=== PATIENT | male | born 1945 | race Caucasian/White ===

== ENCOUNTER 2018-04-14 06:34 | Day surgery (SDC) | payer OTHER ==
[2018-04-12 10:25] VITALS: BMI 27.1
[2018-04-14 07:15] LABS: URINE APPEARANCE CLEAR; URINE BILIRUBIN NEGATIVE (<2.0 mg/dL); URINE COLOR LTYELLOW; URINE GLUCOSE (UA) NEGATIVE (NEGATIVE); URINE KETONE NEGATIVE (NEGATIVE); URINE LEUK ESTERASE NEGATIVE (NEGATIVE); URINE NITRITE NEGATIVE (NEGATIVE); URINE PROTEIN NEGATIVE (NEGATIVE); URINE UROBILINOGEN NEGATIVE mg/dL (0.2-1.0)
[2018-04-14] MEDS ORDERED: fentaNYL CITRATE 250 MCG/5 ML VIAL ONE (07:55)
[2018-04-14] MEDS ORDERED: PROPOFOL 20 ML ONE (07:56)
[2018-04-14] MEDS ORDERED: ROCURONIUM BROMIDE 50 MG/5 ML VIAL ONE ×3 (07:56→11:06)
[2018-04-14] MEDS ORDERED: MIDAZOLAM HCL 2 MG/2 ML SINGLE DOSE VIAL ONE (07:56)
--- NOTE | 2018-04-14 08:11 | HP ---
Admitting History and Physical - Admission History of Present Illness: The patient is 72 yo male who presents today for robotic assisted prostatectomy surgery. He has no complaints of CP/SOB or fevers. No abd pain today, last bowel movemwnt was yesterday. History Source: Patient Limitations to Obtaining History: No Limitations - Past Medical History Cardiovascular: Yes: Hyperlipdemia, Other (arrythemia s/p ablation in 2016). No : Deep Vein Thrombosis Gastrointestinal: No: Constipation - Past Surgical History Past Surgical History: Yes: None - Advance Directives Advance Directives: Yes: Living Will, Health Care Proxy - Smoking History Smoking history: Former smoker Have you smoked in the past 12 months: No - Alcohol/Substance Use Hx Alcohol Use: Yes (OCCASIONAL) Home Medications - Allergies Allergies/Adverse Reactions: Allergies Allergy/AdvReac Type Severity Reaction Status Date / Time Penicillins Allergy Severe Hives Verified 04/14/18 07:27 - Home Medications Home Medications: Ambulatory Orders Atorvastatin Ca [Lipitor] 20 mg PO DAILY 04/12/18 Cholecalciferol (Vitamin D3) [Vitamin D3] 1,000 unit PO DAILY 04/12/18 Citalopram Hydrobromide [Citalopram HBr] 20 mg PO DAILY 04/12/18 Acetaminophen [Tylenol] 1,000 mg PO Q6H PRN #30 capsule 04/14/18 Arnica Flower Extract [Arnica Lg] 1 gm MC ONCE 04/14/18 Cbd Oil PO TID 04/14/18 Docusate Sodium [Colace] 100 mg PO BID #60 capsule 04/14/18 Ketorolac Tromethamine [Toradol] 10 mg PO Q6H #20 tablet 04/14/18 Oxybutynin Chloride [Ditropan -] 5 mg PO TID PRN #10 tablet.er 04/15/18 Review of Systems - Review of Systems Constitutional: denies: Chills, Fever Cardiovascular: denies: Chest Pain Gastrointestinal: denies: Abdominal Pain, Constipation Physical Examination Vital Signs: Vital Signs Temperature 98.2 F 04/14/18 07:23 Pulse Rate 71 04/14/18 07:23 Respiratory Rate 18 04/14/18 07:23 Blood Pressure 135/81 04/14/18 07:23 O2 Sat by Pulse Oximetry (%) 97 04/14/18 07:24 Constitutional: Yes: Well Nourished, No Distress, Calm HENT: Yes: WNL, Atraumatic, Normocephalic Neck: Yes: WNL, Supple, Trachea Midline Cardiovascular: Yes: WNL, Regular Rate and Rhythm Respiratory: Yes: WNL, Regular, CTA Bilaterally Gastrointestinal: Yes: WNL, Normal Bowel Sounds, Soft Extremities: No: Calf Tenderness Edema: No Neurological: Yes: WNL, Alert, Oriented ...Motor Strength: LUE, LLE Psychiatric: Yes: WNL, Alert, Oriented Assessment/Plan 72 yo male with prostatic adenocarcinoma Plan for robotic assisted prostatectomy He remains npo IV abx at time for surgery Heparin SQ prior to surgery, OOB and ambulate post-op D/w Dr. Stewart
[2018-04-14] MEDS ORDERED: ceFAZolin SODIUM 1 GM VIAL ONE (08:40)
[2018-04-14] MEDS ORDERED: ceFAZolin SODIUM 1 GM VIAL IVPB ONE (08:45)
[2018-04-14] MEDS ORDERED: BUPIVACAINE HCL/PF 0.25% (2.5MG/ML) 10 ML VIAL IJ ONE ×3 (08:54→12:58)
[2018-04-14] MEDS ORDERED: ePHEDrine SULFATE 50 MG/1 ML AMPULE ONE (08:56)
[2018-04-14] MEDS ORDERED: DEXAMETHASONE SOD PHOSPHATE 4 MG/1 ML VIAL ONE (09:21)
[2018-04-14] MEDS ORDERED: ONDANSETRON 4 MG/2 ML VIAL IVPUSH PRN ×2 (11:11→13:34)
[2018-04-14] MEDS ORDERED: LACTATED RINGERS SOLUTION 1,000 ML IV SCH (11:15)
--- NOTE | 2018-04-14 11:37 | EKG ---
Test Reason : Blood Pressure : / mmHG Vent. Rate : 067 BPM Atrial Rate : 067 BPM P-R Int : 140 ms QRS Dur : 120 ms QT Int : 402 ms P-R-T Axes : 065 060 042 degrees QTc Int : 424 ms NORMAL SINUS RHYTHM NON-SPECIFIC INTRA-VENTRICULAR CONDUCTION DELAY BORDERLINE ECG NO PREVIOUS ECGS AVAILABLE Confirmed by CARMEN REEVES, CHRIS ([id number]) on 04/14/2018 11:36:58 AM Referred By: SUMMER BREWER Confirmed By:CHRIS MORALES MD
[2018-04-14] MEDS ORDERED: NEOSTIGMINE METHYLSULFATE 0.5 MG/ML - 10 ML MDV ONE (12:53)
[2018-04-14] MEDS ORDERED: GLYCOPYRROLATE 0.2 MG/1 ML VIAL ONE (12:53)
[2018-04-14] MEDS ORDERED: KETOROLAC TROMETHAMINE 30 MG/1 ML VIAL IVPUSH ONE (13:43)
[2018-04-14] MEDS ORDERED: ACETAMINOPHEN 1000 MG/100 ML VIAL (NON FORMULARY) IVPB ONE (13:46)
[2018-04-14] MEDS ORDERED: OXYBUTYNIN CHLORIDE 5 MG TABLET PO PRN (13:46)
[2018-04-14] MEDS ORDERED: diphenhydrAMINE HCL 25 MG CAPSULE (FP) PO PRN (13:48)
--- NOTE | 2018-04-14 13:58 | OP ---
Operative Note - Note: Operative Date: 04/14/18 Pre-Operative Diagnosis: prostate Cancer Operation: robotic assisted lap radical prostatectomy b/l pelivc lymph nodes dissection, left inguinal peritoneal defect repair Surgeon: Diego Stewart Tire Groover: Robson Cavanaugh Anesthesiologist/PRISON LIBRARIAN: Ayesha Kinsey Anesthesia: General Estimated Blood Loss (mls): 100 Drains, Volume Out (mls): 20 (christian)
[2018-04-14] MEDS: SODIUM CHLORIDE 1,000 ML IV SCH (15:15)
[2018-04-14] MEDS ORDERED: ACETAMINOPHEN 325 MG TABLET (FP) PO SCH (20:00)
--- NOTE | 2018-04-14 20:22 | OP ---
DATE OF OPERATION: 04/14/2018 NAME OF OPERATION: Robotic assisted laparoscopic radical prostatectomy with bilateral pelvic lymph node dissection. DESCRIPTION OF PROCEDURE: The patient was brought to the operating room. Timeout was called. All pressure points were padded. He was prepped and draped in the usual fashion for robotic radical prostatectomy. A Stanford catheter was placed in the bladder. Initial pneumoperitoneum was obtained using a Veress needle. Subsequently, an 8 mm port was placed, and the robotic camera was used, and the abdomen was explored. No bowel entries were identified. Three 8-mm ports subsequently and one 12-mm research program assistant port were placed under vision. The robot was brought to the patient's bedside and docked. We identified a few intraabdominal adhesions, which were taken down sharply. The bladder was dropped form the anterior attachment to the abdominal wall. The prostate was then defatted, and this fat was sent for pathological examination. The endopelvic fascia was opened on both sides. Superficial veins were cauterized, and a dorsal venous complex stitch of 0 PDS was placed. The anterior bladder neck was then incised, and the dissection proceeded towards the posterior bladder neck up to the vas deferens and seminal vesicles. The rectoprostatic fascia was incised, and the dissection was carried distally toward the apex. At that point, bilateral nerve sparing procedure was performed, and dissection was pursued laterally up to the apex. On the right, an intrafascial nerve sparing procedure was performed. On the left, an intrafascial nerve sparing procedure was performed. Prostatic vascular pedicles were then controlled bilaterally using wet clips. We then noted that the patient had a sliding hernia on the left. The bladder was retracted from the hernia, and the hernia sac was divided. We then used a running 3-0 Vicryl to cover a flap of peritoneum over the hernia site. We then asked for consultation from Dr. Mora of general surgery to examine the repair, and he agreed with the course of action. The dorsal venous complex was then divided, and the urethra was transected using cold scissors. Following complete transection of the urethra, the prostate was immobilized and freed from its posterior attachments and placed in the right upper quadrant. A prostatic basin was then irrigated with saline. The administrative sales assistant then placed a finger in the rectum, and no rectal injury was observed, and no visible blood noted on the administrative sales assistant's glove. Bilateral pelvic lymph node dissection was performed in the usual fashion between the external iliac and obturator nerves bilaterally. The prostate and lymph nodes were then placed together in an EndoCatch bag. At this point, hemostasis was assessed and maintained in the prostatic fossa. The urethrovesical anastomosis was then performed using 2-0 Monocryl sutures on a UR6 needle in a running anastomotic technique. Again, anastomosis was tested with 60 mL of saline and was watertight. A Magen-Jo drain was not placed. The 12-mm research program assistant port was closed using the Cesar-Dontae device with 0 Vicryl. The specimen was extracted after enlarging the umbilical incision. The fascia was then closed using running 0 Vicryl. The skin was closed using 4-0 Monocryl and covered with Dermabond. The patient was extubated in the OR, and taken to the recovery room in good condition. MD TAMIKA BULLOCK/[id number]
[2018-04-14] MEDS ORDERED: ZOLPIDEM TARTRATE 5 MG TABLET PO PRN (22:00)
[2018-04-14] MEDS ORDERED: ATORVASTATIN CA 20 MG TABLET (FP) PO SCH (22:00)
[2018-04-14] MEDS: DOCUSATE SODIUM 100 MG CAPSULE (FP) PO SCH (22:42)
[2018-04-14] MEDS: KETOROLAC TROMETHAMINE 10 MG TABLET PO SCH (23:11)
[2018-04-14] MEDS: ACETAMINOPHEN 500 MG TABLET (FP) PO SCH (23:35)
[2018-04-15] MEDS: SODIUM CHLORIDE 1,000 ML IV SCH (02:15)
[2018-04-15] MEDS ORDERED: ACETAMINOPHEN 500 MG TABLET (FP) PO PRN (05:43)
[2018-04-15] MEDS: ACETAMINOPHEN 500 MG TABLET (FP) PO SCH (06:21)
[2018-04-15] MEDS: KETOROLAC TROMETHAMINE 10 MG TABLET PO SCH ×5 (06:23→15:51)
--- NOTE | 2018-04-15 08:12 | PN ---
Progress Note (short form) - Note Progress Note: POD#1 Pt with lower intermittent abd pain overnight, medicated with tyelnol X1. Denies any CP/SOB. Vital Signs Period Temp Pulse Resp BP Sys/Chavira Pulse Ox Last 24 Hr 97.6 F-98.9 F 85-109 14-20 113-151/66-96 93-99 UOP-1100ml clear/yellow urine GEN: resting comfortabley CV: RRR Lungs: CTA b/l ABD: soft, non-distended, Inc tenderness. Inc c/d/i with dermabond. No ecchymosis/erythema noted. LE: SCDs in place. No calf tenderness or swelling noted b/l A/P: 72 yo male s/p robotic assisted prostatectomy, b/l lymph node dissection Christian catheter remains clear this am, continue christian to drainage. Will need leg bag appliance upon discharge. Continue clear liquid diet today, awaiting flatus for diet to be advanced. Continue stool softners to avoid straining with bowel movements. Tylenol/toradol for pain management OOB and ambulate today cbc/chem to be drawn this am Incentive spirometer D/w Dr. Stewart
[2018-04-15 09:00] LABS: HEMATOCRIT 32.9 % (35.4-49); HEMOGLOBIN 11.4 GM/dL (11.7-16.9); RBC 3.64 M/mm3 (4.00-5.60); WHITE BLOOD COUNT 8.5 K/mm3 (4.0-10.0)
[2018-04-15 09:01] LABS: MCH 31.4 pg (25.7-33.7); MCHC 34.7 g/dl (32.0-35.9); MEAN CELL VOLUME 90.4 fl (80-96); MEAN PLT VOLUME 7.1 fl (7.5-11.1); PLATELET COUNT 144 K/MM3 (134-434); RDW 13.4 % (11.9-15.9)
[2018-04-15 09:25] LABS: ANION GAP 5 MMOL/L (8-16); BLOOD UREA NITROGEN 22 mg/dL (7-18); CALCIUM 7.9 mg/dL (8.5-10.1); CHLORIDE 106 mmol/L (98-107); CO2 26 mmol/L (21-32); CREATININE 1.2 mg/dL (0.55-1.3); GLUCOSE,RANDOM 90 mg/dL (74-106); POTASSIUM 4.2 mmol/L (3.5-5.1); SODIUM 138 mmol/L (136-145)
[2018-04-15] MEDS ORDERED: CHOLECALCIFEROL (VITAMIN D3) 1,000 UNIT TABLET (FP) PO SCH (10:00)
[2018-04-15] MEDS ORDERED: CITALOPRAM HYDROBROMIDE 20 MG TABLET (FP) PO SCH (10:00)
[2018-04-15] MEDS: DOCUSATE SODIUM 100 MG CAPSULE (FP) PO SCH (10:04)
[2018-04-15 11:09] VITALS: TEMP 98.1
--- NOTE | 2018-04-15 13:33 | PN ---
Progress Note (short form) - Note Progress Note: POD #1 - s/p robotic prostatectomy. VSS. Pt. doing well, resting comfortably in bed. No complaints. Good pain control. No apparent anesthetic complications noted. Continue current care.
[2018-04-15 14:50] VITALS: BP 121/65; PULSE 82
--- NOTE | 2018-04-20 17:35 | PATH ---
Surgical Pathology Report Patient Name: ÁNGEL KEVIN [facility]. Rec. #: [id number] /Age/Gender: 1945 (Age: 72) / M Account: [id number] Location: AMBULATORY SURG Taken: 04/14/2018 Received: 04/15/2018 Reported: 04/20/2018 Physicians: Diego Stewart MD Specimen(s) Received A: SARAH PROSTATIC FAT B: BLADDER NECK MARGIN C: PELVIC LYMPH NODE A D: PELVIC LYMPH NODE B E: PROSTATE AND SEMINAL VESICLE Clinical History Prostate cancer Final Diagnosis A. PERIPROSTATIC FAT, EXCISION: BENIGN FIBROADIPOSE AND FIBROVASCULAR TISSUE. NEGATIVE FOR CARCINOMA. B. BLADDER NECK MARGIN, EXCISION: BENIGN PROSTATIC PARENCHYMA AND SMOOTH MUSCLE BUNDLES. NEGATIVE FOR CARCINOMA. C. PELVIC LYMPH NODE, A, DISSECTION: THREE LYMPH NODES, NEGATIVE FOR CARCINOMA (0/3). D. PELVIC LYMPH NODE, B, DISSECTION: THREE LYMPH NODES, NEGATIVE FOR CARCINOMA (0/3). E. PROSTATE AND SEMINAL VESICLES, ROBOTIC-ASSISTED LAPAROSCOPIC RADICAL PROSTATECTOMY: PROSTATIC ADENOCARCINOMA, YOHANNES SCORE (4 + 3 = 7), GRADE 3; TERTIARY PATTERN YOHANNES 5. TUMOR VOLUME: APPROXIMATELY 50% OF GLAND VOLUME. TUMOR FOCALITY: MULTIFOCAL, PRESENT BILATERALLY; DOMINANT NODULE AT LEFT, MEASURES 3.2 X 2.7 X 2.7 CM. HIGH GRADE PROSTATIC INTRAEPITHELIAL NEOPLASIA (HGPIN) PRESENT. FOCAL INTRADUCTAL CARCINOMA PRESENT. TUMOR INVOLVES RIGHT AND LEFT SEMINAL VESICLES. LYMPHOVASCULAR INVASION IDENTIFIED. PERINEURAL INVASION IDENTIFIED. EXTRAPROSTATIC EXTENSION: PRESENT, FOCAL, AT LEFT POSTERIOR BASE. SURGICAL MARGIN IS FOCALLY POSITIVE, LIMITED, MEASURES 1 MM, AT LEFT BASE (YOHANNES 4); OTHER MARGINS ARE NEGATIVE. PATHOLOGIC STAGE: pT3b pN0. SEE SUMMARY BELOW. Comment: Immunohistochemical stain for p63 highlight basal cells in the intraductal carcinoma and HGPIN (part E). Immunohistochemical stains performed and interpreted at [facility] for AE1/3 utilized to evaluate part C and D. Case seen interdepartmentally. Findings discussed with Dr. Stewart. Comments Prostate Carcinoma Invasive Case Summary _X__ Radical prostatectomy +Prostate Size + Weight: _57__ g + Size (centimeters): _5__ x _4.8__ x _4__ cm Histologic Type _X__ Acinar adenocarcinoma Primary [place] Pattern _X__ Pattern 4 Secondary Yohannes Pattern _X__ Pattern 3 Tertiary [place] Pattern _X__ Pattern 5 Total [place] Score: _7_ Grade Group _X__ Grade group 3 + Percentage of Yohannes Patterns 4 and 5 (applicable to [place] score =7) + Percentage of pattern 4: _60__% + Percentage of pattern 5: _5__% + Intraductal Carcinoma (IDC) + _X__Present + Tumor Quantitation + Estimated percentage of prostate involved by tumor: _50%_ and/or + Tumor size (dominant nodule, if present): + Greatest dimension (millimeters): _3.2__ mm + Additional dimensions (millimeters): _2.7__ x _2.7__ mm + Location of dominant nodule:__Left posterior and anterior__ Extraprostatic Extension (EPE) _X__ Present, focal + Location of Extraprostatic Extension + _X_ Left posterior (base) Urinary Bladder Neck Invasion _X__ Not identified Seminal Vesicle Invasion _X__ Present + _X__ Bilateral Margins _X__ Involved by invasive carcinoma _X__ Limited (<3 mm) + Linear length of positive margin(s) (millimeters): _1_ mm. + Focality + _X__ Unifocal Location of Positive Margin(s) _X__ Left base + Margin Positivity in Area of Extraprostatic Extension (EPE) + _X__ Not identified + [place] Pattern at Positive Margin(s) + _X__ Pattern 4 Treatment Effect _X__ No known presurgical therapy + Lymphovascular Invasion + _X__ Present + Perineural Invasion + __X_ Present Regional Lymph Nodes Lymph Node Examination Number of Lymph Nodes Involved: _0_ + Specify Site(s): __pelvic lymph nodes__Number of Lymph Nodes Examined: __6_ Pathologic Stage Classification (pTNM, AJCC 8th Edition) Primary Tumor (pT) _X__ pT3b: Tumor invades seminal vesicle(s) Regional Lymph Nodes (pN) _X__ pN0: No positive regional nodes + Additional Pathologic Findings + _X_ High-grade prostatic intraepithelial neoplasia (HGPIN) + _X_ Inflammation (specify type): __chronic_ Electronically Signed Adeline Tom M.D. Gross Description A. Received in formalin labeled "periprostatic fat," is a 3.5 x 3.5 x 0.3 cm aggregate of yellow, lobulated adipose tissue. The specimen is submitted in toto in 2 cassettes. B. Received in formalin labeled "bladder neck margin," are 2 donato brown, cauterized portions of tissue measuring 1.5 x 0.9 x 0.4 cm and 1.2 x 1.2 x 0.5 cm. The specimens are inked blue and serially sectioned. The specimen is entirely submitted in 2 cassettes. C. Received in formalin labeled "pelvic lymph node A," is a 6.0 x 5.0 x 1.4 cm aggregate of yellow, lobulated adipose tissue. Sectioning reveals 3 possible lymph nodes ranging from 0.8-1.7 cm in greatest dimension. The lymph nodes are entirely submitted in 3 cassettes as follows: 1-two whole possible lymph nodes; 2-3-one bisected lymph node. D. Received in formalin labeled "pelvic lymph node B," is a 6.0 x 5.0 x 0.9 cm aggregate of yellow, lobulated adipose tissue. Sectioning reveals 3 donato lymph nodes ranging from 1.0-1.5 cm in greatest dimension. The lymph nodes are entirely submitted in 4 cassettes as follows: 1-one bisected lymph node; 2-one bisected lymph node; 3-4-one bisected lymph node. E. Received in formalin labeled "prostate and seminal vesicle," is a 57 g radical prostatectomy specimen that measures 5.0 cm from left to right, 4.8 cm from anterior to posterior and 4.0 cm from apex to base. The right seminal vesicle measures 2.5 x 1.7 x 1.0 cm and left seminal vesicle measures 2.5 x 1.8 x 0.9 cm. The left and right vas deferens are present and average 2.5 cm in length. The right side of the prostate is inked red and the left side is inked black. The external surface of the prostate is smooth. Sectioning reveals a 3.2 x 2.7 x 2.7 cm, homogeneous donato, nodular mass predominantly in the left posterior portion of the gland, focally extending into the anterior aspect. The lesion focally abuts the outer capsule. The remaining prostate parenchyma is donato, rubbery and focally nodular. Foundry Tender sections are submitted in 36 cassettes as follows: 1-right vas deferens margin; 1-8-[id number] of right seminal vesicle with prostate; 4-left vas deferens margin; 5-1-imthovpu of left seminal vesicle with prostate; 7-serially sectioned right apex; 8-serially sectioned the left apex; 9-14-right anterior sequentially submitted from apex to base; 15-20-right posterior sequentially submitted from apex to base; 21-26-left anterior sequentially submitted from apex to base; 27-32-left posterior sequentially submitted from apex to base; 33-34-right base; 35-36-left base. DL04/15/2018 saudi04/15/2018
== END 2018-04-15 16:41 | disposition home or self-care (01) ==
LOC: JASU-SURG 06:34 → JASUSAT 06:34 → J6S 16:26 → JASUSAT 04-15 16:41
PROVIDERS: ATTEND Urology
PROC: 07BC4ZX Excision of Pelvis Lymphatic, Percutaneous Endoscopic Approach, Diagnostic (ICD-10-PCS; 2018-04-14)
PROC: 0VT04ZZ Resection of Prostate, Percutaneous Endoscopic Approach (ICD-10-PCS; principal; 2018-04-14 08:00)
DX: C61 Malignant neoplasm of prostate (principal)
CPT/HCPCS: 36415; 80048; 81003; 85027; 86850; 86900; 86901; 88305-TC; 88307-TC; 88309-TC; 88342-TC; 93005; 93010; 94010; 94760; J0131; J7030